=== PATIENT | male | born 2005 | race Two or more races ===

== ENCOUNTER 2024-12-28 10:45 | Emergency (ER) | payer BC ==
[~2024-12-28] VITALS: Ht 172.7 cm; Wt 86.2 kg
[2024-12-28] MEDS ORDERED: HYDROGEN PEROXIDE 473 ML BOTTLE TOP ONE (11:19)
[2024-12-28] MEDS ORDERED: LIDOCAINE HCL 1% 10ML VIAL ONE (11:19)
[2024-12-28] MEDS ORDERED: POVIDONE-IODINE 118 ML BOTT TOP ONE (11:20)
== END 2024-12-28 12:52 | disposition home or self-care (01) ==
LOC: ER 10:45 → EMR PED 10:45
DX: S01.81XA Laceration without foreign body of other part of head, initial encounter (principal); X58.XXXA Exposure to other specified factors, initial encounter; Y93.89 Activity, other specified; Y92.511 Restaurant or cafe as the place of occurrence of the external cause; Y99.8 Other external cause status